=== PATIENT | male | born 1945 | race Caucasian/White ===

== ENCOUNTER → 2017-11-25 | Outpatient (CLI) | payer OTHER, BC ==
[~2017-11-25] MED LIST: ASPI325T45 PO; CLC100X PO; FAMO20TA9 PO; FERR325T5 PO; FOLI1TAB8 PO; HYDR25TA4 PO; LORA-741 PO; MAGN400T5 PO; POLY335025 PO; PROP20TA67 PO; SENN-65 PO; THIA1TAB PO; TRAM-10 PO
[2017-11-25 14:05] LABS: BLOOD UREA NITROGEN 28 mg/dl (7-18); CALCIUM 9.1 mg/dl (8.5-10.1); CARBON DIOXIDE 28 mmol/L (21-32); CHOLESTEROL 147 mg/dl (0-200); CREATININE 1.01 mg/dl (0.60-1.40); GLUCOSE 109 mg/dl (70-99); POTASSIUM 3.7 mmol/L (3.5-5.1); SODIUM 136 mmol/L (136-145)
[2017-11-25 14:08] LABS: LDL CHOLESTEROL CALCULATED 78 mg/dl
== END | disposition home or self-care (01) ==
LOC: C.LABBC 12:21
PROVIDERS: ATTEND Internal Medicine Geriatric Medicine
DX: I10 Essential (primary) hypertension (principal); E78.5 Hyperlipidemia, unspecified